=== PATIENT | female | born 1950 | race Caucasian/White ===

== ENCOUNTER 2017-09-12 20:05 | Emergency (ER) | payer OTHER ==
[~2017-09-12] VITALS: Ht 157.5 cm; Wt 64.0 kg
[~2017-09-12 20:05] MED LIST: ABAT250V; ACET325 PO; ALBU90OI INH; ALBU90OI61 INH; ALBUTEROL SULF INH; ALLO100 PO; ALPR.5 PO; ALUM320SU PO; AMOCLA500 PO; ASPI81CH PO; ASPI81EC PO; Amox Tr-K Clv1 EAC1 PO; Aranesp40 MCG/0.4 INJ; Augmentin 875-1 EACH PO; BISA10S PR; BUME2 PO; Bystolic2.5 MG PO; CEPH500 PO; CHOL10002 PO; CITRACAL + D E1 EACH; CITRACAL + D E1 EACH PO; CLARITIN10 MG PO; CLON1; CLON1 PO; CLON2 PO; CLOZAPINE; CODACE30 PO; CYAN500 PO; CYCL10 PO; Cleocin HCl300 MG PO; DOCU100 PO; DONE5 PO; DULERA 200 MCG/13 GM INH; ESCI10; ESCI20 PO; ESTRADIOL; Enulose10 GM/15 M PO; FERR325 PO; FLUO10 PO; FLUO20 PO; FLUSAL2505 IH; FLUSAL2505 INH; FURO40 PO; Flonase 0.05% N16 GM INH; GABA100 PO; HYDACE10B PO; HYDHCL25 PO; IBUP600 PO; Keflex250 MG PO; Keflex500 MG PO; LIDO5TP TOP; LOSA25 PO; LOVA40 PO; Lisinopril2.5 MG PO; MEGE40SU PO; METO25; METO25ER PO; MIDO5 PO; Micro-K10 MEQ PO; NAPR375 PO; NAPR500ERA; NEPHROCAPS QT1 EACH PO; OLAN5 PO; OMEP20ER PO; ONDA8 PO; OXYB5 PO; Omeprazole20 M1 PO; PANT40 PO; PRAM.125 PO; PRAM.5 PO; PRED10 PO; PREG150 PO; PRO AIR; ROPI1 PO; RXLORA1 PO; SERT50 PO; SODCITSO PO; SPIHYD PO; TEMA15 PO; TIOT18; TIOT18 IH; TIOT18 INH; TOCO400 PO; TRAZ50 PO; TRIHYD5075 PO; VENL75ER PO; VITNEPH PO
[2017-09-12] MEDS ORDERED: BENZ100A PO (20:53)
[2018-05-05] MEDS ORDERED: Hydrocodone-Ap1 EA23 PO (16:45)
[2018-05-05] MEDS ORDERED: Aspirin EC81 MG PO (17:08)
[2018-06-02] MEDS ORDERED: Keppra1000 MG PO (11:35)
[2018-06-02] MEDS ORDERED: PANT40 PO (11:36)
[2018-06-02] MEDS ORDERED: SERT50 PO (11:36)
[2018-06-02] MEDS ORDERED: ALPR.5 PO (11:36)
[2018-06-02] MEDS ORDERED: TIROSINT100 MCG PO (11:37)
[2018-06-02] MEDS ORDERED: Zanaflex2 M1 PO (11:38)
[2018-06-02] MEDS ORDERED: HYDR1TAB94 PO (11:39)
[2018-06-02] MEDS ORDERED: MEGESTROL400 MG/10 PO (11:41)
[2018-06-02] MEDS ORDERED: Calcium Acetat667 MG PO (11:42)
[2018-06-05] MEDS ORDERED: CEPH500 PO (13:50)
[2018-06-05] MEDS ORDERED: QUET25 PO (13:51)
[2018-06-12] MEDS ORDERED: MEGESTROL400 MG/10 PO (12:55)
[2018-07-07] MEDS ORDERED: ROPI1 PO (12:56)
[2018-07-07] MEDS ORDERED: CLON.5 PO (12:58)
[2018-07-07] MEDS ORDERED: GABA100 PO (13:00)
[2018-07-08] MEDS ORDERED: ACET325 PO (12:09)
[2018-07-08] MEDS ORDERED: ONDA4ODT MM (12:09)
== END 2017-09-12 21:03 | disposition home or self-care (01) ==
LOC: ER 20:05
DX: J11.1 Influenza due to unidentified influenza virus with other respiratory manifestations (principal); Z88.2 Allergy status to sulfonamides; Z88.1 Allergy status to other antibiotic agents; Z79.899 Other long term (current) drug therapy; Z79.82 Long term (current) use of aspirin; I10 Essential (primary) hypertension; F32.9 Major depressive disorder, single episode, unspecified; F17.200 Nicotine dependence, unspecified, uncomplicated
CPT/HCPCS: 99283

== ENCOUNTER 2017-10-26 04:39 | Emergency (ER) | payer OTHER ==
[~2017-10-26] VITALS: Ht 162.6 cm; Wt 68.0 kg
[~2017-10-26 04:39] MED LIST changes: +BENZ100A PO
[2017-10-26 05:00] LABS: Calcium, Ionized (POC) 1.29 mmol/L (1.10-1.46); Chloride (POC) 124 mmol/L (98-108); Creatinine (POC) 5.2 mg/dL (0.6-1.0); Glucose (ISTAT POC) 194 mg/dL (70-99); Hemoglobin (POC) 13.6 g/dL (12.0-16.0); Potassium (POC) 6.2 mmol/L (3.5-5.5); Sodium (POC) 148 mmol/L (135-148); Total CO2 (POC) 15 mmol/L (21-32)
[2017-10-26 05:02] LABS: BASOPHILS ABSOLUTE AUTO 0.21 K/mm3 (0.00-0.23); BASOPHILS PERCENT AUTO 1 % (0-2); EOSINOPHILS ABSOLUTE AUTO 0.85 K/mm3 (0.00-0.68); EOSINOPHILS PERCENT AUTO 5 % (0-6); Hematocrit 43.2 % (33.0-51.0); Hemoglobin 12.2 g/dL (11.5-16.0); IMMATURE GRAN ABSOLUTE AUTO 0.11 K/mm3 (0.00-0.10); IMMATURE GRAN PERCENT AUTO 1 % (0-1); LYMPHOCYTES ABSOLUTE AUTO 6.12 K/mm3 (0.84-5.20); LYMPHOCYTES PERCENT AUTO 37 % (21-46); MONOCYTES ABSOLUTE AUTO 1.06 K/mm3 (0.16-1.47); MONOCYTES PERCENT AUTO 6 % (4-13); Mean Corpuscular HGB 31.8 pg (26.0-34.0); Mean Corpuscular HGB Conc 28.2 g/dL (31.5-36.5); Mean Corpuscular Volume 113 fL (80-100); Mean Platelet Volume 9.1 fL (9.1-12.4); NEUTROPHILS ABSOLUTE AUTO 8.09 K/mm3 (1.96-9.15); NEUTROPHILS PERCENT AUTO 49 % (41-73); Platelet Count 329 K/mm3 (150-400); RDW Coefficient Variation 15.4 % (11.7-14.2); RDW Standard Deviation 64.3 fL (35.1-46.3); Red Blood Cell Count 3.84 M/mm3 (3.80-5.20); White Blood Cell Count 16.44 K/mm3 (4.00-11.30)
[2017-10-26 05:40] LABS: Albumin, Blood 3.1 g/dL (3.4-5.0); Albumin/Globulin Ratio 0.7 (0.8-1.8); Bilirubin, Total 0.4 mg/dL (0.1-1.0); Calcium, Blood 9.1 mg/dL (8.5-10.1); Creatinine, Blood 4.93 mg/dL (0.40-1.00); Globulin, Blood 4.2 g/dL (2.2-4.0); Total Protein, Blood 7.3 g/dL (6.4-8.2)
[2017-10-26 05:42] LABS: Potassium, Blood 6.3 mmol/L (3.5-5.5)
[2017-10-26] MEDS ORDERED: LOSA50 PO (06:51)
[2017-10-26] MEDS ORDERED: LEVE500 PO (06:52)
[2017-10-26] MEDS ORDERED: HYDHCL25 PO (06:53)
[2017-10-26] MEDS ORDERED: OXYC5 PO (06:54)
[2017-10-26 07:11] LABS: PO2 Arterial 89.8 mmHg (80-100)
[2017-10-26 07:12] LABS: pH Blood Arterial 7.16 (7.35-7.45)
[2017-10-26 07:35] LABS: Calcium, Ionized (POC) 1.46 mmol/L (1.10-1.46); Chloride (POC) 125 mmol/L (98-108); Creatinine (POC) 5.7 mg/dL (0.6-1.0); Glucose (ISTAT POC) 113 mg/dL (70-99); Hemoglobin (POC) 14.6 g/dL (12.0-16.0); Potassium (POC) 5.9 mmol/L (3.5-5.5); Sodium (POC) 150 mmol/L (135-148); Total CO2 (POC) 17 mmol/L (21-32)
[2018-05-05] MEDS ORDERED: Hydrocodone-Ap1 EA23 PO (16:45)
[2018-05-05] MEDS ORDERED: Aspirin EC81 MG PO (17:08)
[2018-06-02] MEDS ORDERED: Keppra1000 MG PO (11:35)
[2018-06-02] MEDS ORDERED: PANT40 PO (11:36)
[2018-06-02] MEDS ORDERED: ALPR.5 PO (11:36)
[2018-06-02] MEDS ORDERED: SERT50 PO (11:36)
[2018-06-02] MEDS ORDERED: TIROSINT100 MCG PO (11:37)
[2018-06-02] MEDS ORDERED: Zanaflex2 M1 PO (11:38)
[2018-06-02] MEDS ORDERED: HYDR1TAB94 PO (11:39)
[2018-06-02] MEDS ORDERED: MEGESTROL400 MG/10 PO (11:41)
[2018-06-02] MEDS ORDERED: Calcium Acetat667 MG PO (11:42)
[2018-06-05] MEDS ORDERED: CEPH500 PO (13:50)
[2018-06-05] MEDS ORDERED: QUET25 PO (13:51)
[2018-06-12] MEDS ORDERED: MEGESTROL400 MG/10 PO (12:55)
[2018-07-07] MEDS ORDERED: ROPI1 PO (12:56)
[2018-07-07] MEDS ORDERED: CLON.5 PO (12:58)
[2018-07-07] MEDS ORDERED: GABA100 PO (13:00)
[2018-07-08] MEDS ORDERED: ONDA4ODT MM (12:09)
[2018-07-08] MEDS ORDERED: ACET325 PO (12:09)
== END 2017-10-26 09:16 | disposition short-term general hospital (02) ==
LOC: ER 04:39
PROVIDERS: Emergency Medicine
DX: E87.5 Hyperkalemia (principal); E87.0 Hyperosmolality and hypernatremia; E87.2 Acidosis; I12.0 Hypertensive chronic kidney disease with stage 5 chronic kidney disease or end stage renal disease; E11.22 Type 2 diabetes mellitus with diabetic chronic kidney disease; N18.6 End stage renal disease; R94.31 Abnormal electrocardiogram [ECG] [EKG]; Z91.14 Patient's other noncompliance with medication regimen; F17.210 Nicotine dependence, cigarettes, uncomplicated; Z88.2 Allergy status to sulfonamides; Z88.1 Allergy status to other antibiotic agents; Z91.09 Other allergy status, other than to drugs and biological substances; Z79.899 Other long term (current) drug therapy; Z79.82 Long term (current) use of aspirin; Z99.2 Dependence on renal dialysis
CPT/HCPCS: 31500; 31720; 36415; 36600; 70450; 71045; 80047; 80053; 82803; 85014; 85025; 87040; 93005; 93010; 94002; 94640; 96365; 96366; 96367; 96368; 96375; 99291; 99292; J0330; J0692; J1815; J1953; J2060; J3370; J7030; J7050; J7070

== ENCOUNTER 2018-02-22 12:14 | Observation (INO) | payer OTHER ==
[~2018-02-22] VITALS: Ht 160 cm; Wt 56.6 kg
[~2018-02-22 12:14] MED LIST changes: +LEVE500 PO; +LOSA50 PO; +OXYC5 PO
[2018-02-22 12:50] LABS: BASOPHILS ABSOLUTE AUTO 0.06 K/mm3 (0.00-0.23); BASOPHILS PERCENT AUTO 1 % (0-2); EOSINOPHILS ABSOLUTE AUTO 0.31 K/mm3 (0.00-0.68); EOSINOPHILS PERCENT AUTO 3 % (0-6); Hematocrit 34.1 % (33.0-51.0); Hemoglobin 10.4 g/dL (11.5-16.0); IMMATURE GRAN ABSOLUTE AUTO 0.09 K/mm3 (0.00-0.10); IMMATURE GRAN PERCENT AUTO 1 % (0-1); LYMPHOCYTES ABSOLUTE AUTO 2.97 K/mm3 (0.84-5.20); LYMPHOCYTES PERCENT AUTO 24 % (21-46); MONOCYTES PERCENT AUTO 8 % (4-13); Mean Corpuscular HGB 28.5 pg (26.0-34.0); Mean Corpuscular HGB Conc 30.5 g/dL (31.5-36.5); Mean Corpuscular Volume 93 fL (80-100); Mean Platelet Volume 9.5 fL (9.1-12.4); NEUTROPHILS ABSOLUTE AUTO 7.76 K/mm3 (1.96-9.15); NEUTROPHILS PERCENT AUTO 64 % (41-73); Platelet Count 331 K/mm3 (150-400); RDW Coefficient Variation 16.2 % (11.7-14.2); RDW Standard Deviation 55.4 fL (35.1-46.3); Red Blood Cell Count 3.65 M/mm3 (3.80-5.20); White Blood Cell Count 12.19 K/mm3 (4.00-11.30)
[2018-02-22 13:04] LABS: International Normalized Ratio 0.95; Prothrombin Time Results 9.8 Sec (9.7-11.5)
[2018-02-22 13:08] LABS: Alanine Aminotransfer (ALT/SGP 16 U/L (12-78); Albumin, Blood 2.9 g/dL (3.4-5.0); Albumin/Globulin Ratio 0.9 (0.8-1.8); Alk Phos 111 U/L (50-136); Anion Gap 6 mmol/L (6-16); Aspartate Aminotrans (AST/SGOT 26 U/L (12-37); Bilirubin, Total 0.3 mg/dL (0.1-1.0); Blood Urea Nitrogen 37 mg/dL (8-24); Bun/Creatinine Ratio 9.2 (12.0-20.0); CO2, Blood 34 mmol/L (21-32); Calcium, Blood 8.2 mg/dL (8.5-10.1); Chloride, Blood 99 mmol/L (98-108); Creatinine, Blood 4.03 mg/dL (0.40-1.00); Ethanol (Alcohol), Blood, Med <3 mg/dL; Globulin, Blood 3.3 g/dL (2.2-4.0); Glomerular Filtration Rate 12 (60-); Glucose, Blood 60 mg/dL (70-99); Potassium, Blood 3.7 mmol/L (3.5-5.5); Sodium, Blood 139 mmol/L (136-145); Total Protein, Blood 6.2 g/dL (6.4-8.2); Troponin I <0.015 ng/mL (0.000-0.040)
[2018-02-22] MEDS ORDERED: SERT50 PO (14:31)
[2018-02-22] MEDS ORDERED: PANT40 PO (14:31)
[2018-02-22] MEDS ORDERED: Carbidopa-Levo1 EAC1 PO (14:32)
[2018-02-22] MEDS ORDERED: HYDHCL25 PO (14:39)
[2018-02-22] MEDS ORDERED: DONE5 PO (14:39)
[2018-02-22] MEDS ORDERED: ALLO100 PO (18:26)
[2018-02-22] MEDS ORDERED: LEVE500 PO ×2 (18:26→18:27)
[2018-02-23 05:27] LABS: BASOPHILS PERCENT AUTO 1 % (0-2); EOSINOPHILS ABSOLUTE AUTO 0.57 K/mm3 (0.00-0.68); EOSINOPHILS PERCENT AUTO 6 % (0-6); Hematocrit 30.8 % (33.0-51.0); Hemoglobin 9.6 g/dL (11.5-16.0); IMMATURE GRAN ABSOLUTE AUTO 0.04 K/mm3 (0.00-0.10); IMMATURE GRAN PERCENT AUTO 0 % (0-1); LYMPHOCYTES ABSOLUTE AUTO 3.09 K/mm3 (0.84-5.20); LYMPHOCYTES PERCENT AUTO 30 % (21-46); MONOCYTES ABSOLUTE AUTO 0.88 K/mm3 (0.16-1.47); MONOCYTES PERCENT AUTO 9 % (4-13); Mean Corpuscular HGB 29.3 pg (26.0-34.0); Mean Corpuscular HGB Conc 31.2 g/dL (31.5-36.5); Mean Corpuscular Volume 94 fL (80-100); Mean Platelet Volume 8.8 fL (9.1-12.4); NEUTROPHILS ABSOLUTE AUTO 5.55 K/mm3 (1.96-9.15); NEUTROPHILS PERCENT AUTO 54 % (41-73); Platelet Count 250 K/mm3 (150-400); RDW Coefficient Variation 16.1 % (11.7-14.2); RDW Standard Deviation 55.5 fL (35.1-46.3); Red Blood Cell Count 3.28 M/mm3 (3.80-5.20); White Blood Cell Count 10.23 K/mm3 (4.00-11.30)
[2018-02-23 06:00] LABS: Albumin, Blood 2.4 g/dL (3.4-5.0); Anion Gap 10 mmol/L (6-16); Blood Urea Nitrogen 41 mg/dL (8-24); Bun/Creatinine Ratio 9.4 (12.0-20.0); CO2, Blood 29 mmol/L (21-32); Calcium, Blood 7.9 mg/dL (8.5-10.1); Chloride, Blood 105 mmol/L (98-108); Creatinine, Blood 4.34 mg/dL (0.40-1.00); Glomerular Filtration Rate 11 (60-); Glucose, Blood 79 mg/dL (70-99); Magnesium, Blood 1.9 mg/dL (1.6-2.4); Phosphorus, Blood 3.9 mg/dL (2.5-4.9); Potassium, Blood 4.4 mmol/L (3.5-5.5); Sodium, Blood 144 mmol/L (136-145)
== END 2018-02-23 13:20 | disposition home or self-care (01) ==
LOC: ER 12:14 → MEDS 12:15 → ENPENDDIS 02-23 10:00 → MEDS 02-23 13:20
PROVIDERS: Emergency Medicine; Internal Medicine
DX: S06.5X0A Traumatic subdural hemorrhage without loss of consciousness, initial encounter (principal); I12.0 Hypertensive chronic kidney disease with stage 5 chronic kidney disease or end stage renal disease; E11.22 Type 2 diabetes mellitus with diabetic chronic kidney disease; N18.6 End stage renal disease; J44.9 Chronic obstructive pulmonary disease, unspecified; G20 Parkinson's disease; F32.9 Major depressive disorder, single episode, unspecified; D63.1 Anemia in chronic kidney disease; N25.81 Secondary hyperparathyroidism of renal origin; E86.9 Volume depletion, unspecified; F17.210 Nicotine dependence, cigarettes, uncomplicated; R42 Dizziness and giddiness; M19.90 Unspecified osteoarthritis, unspecified site; E88.09 Other disorders of plasma-protein metabolism, not elsewhere classified; F02.80 Dementia in other diseases classified elsewhere, unspecified severity, without behavioral disturbance, psychotic disturbance, mood disturbance, and anxiety; Z88.1 Allergy status to other antibiotic agents; Z88.2 Allergy status to sulfonamides; Z91.041 Radiographic dye allergy status; Z99.2 Dependence on renal dialysis; Z85.841 Personal history of malignant neoplasm of brain; Z79.82 Long term (current) use of aspirin; Z79.899 Other long term (current) drug therapy; W01.190A Fall on same level from slipping, tripping and stumbling with subsequent striking against furniture, initial encounter
CPT/HCPCS: 36415; 70450; 71045; 72125; 80048; 80053; 80069; 83735; 84484; 85025; 85610; G0480; J0881

== ENCOUNTER 2018-03-09 04:41 | Inpatient (IN) | payer OTHER ==
[~2018-03-09] VITALS: Ht 160 cm; Wt 56.3 kg
[~2018-03-09 04:41] MED LIST changes: +Carbidopa-Levo1 EAC1 PO
[2018-03-09 05:11] LABS: BASOPHILS ABSOLUTE AUTO 0.03 K/mm3 (0.00-0.23); BASOPHILS PERCENT AUTO 1 % (0-2); EOSINOPHILS ABSOLUTE AUTO 0.03 K/mm3 (0.00-0.68); EOSINOPHILS PERCENT AUTO 1 % (0-6); Hemoglobin 10.2 g/dL (11.5-16.0); IMMATURE GRAN ABSOLUTE AUTO 0.05 K/mm3 (0.00-0.10); IMMATURE GRAN PERCENT AUTO 1 % (0-1); LYMPHOCYTES ABSOLUTE AUTO 0.53 K/mm3 (0.84-5.20); LYMPHOCYTES PERCENT AUTO 8 % (21-46); MONOCYTES ABSOLUTE AUTO 0.17 K/mm3 (0.16-1.47); MONOCYTES PERCENT AUTO 3 % (4-13); Mean Corpuscular HGB 29.6 pg (26.0-34.0); Mean Corpuscular HGB Conc 30.9 g/dL (31.5-36.5); Mean Corpuscular Volume 96 fL (80-100); Mean Platelet Volume 9.1 fL (9.1-12.4); NEUTROPHILS ABSOLUTE AUTO 5.63 K/mm3 (1.96-9.15); NEUTROPHILS PERCENT AUTO 87 % (41-73); Platelet Count 275 K/mm3 (150-400); RDW Coefficient Variation 15.3 % (11.7-14.2); RDW Standard Deviation 54.1 fL (35.1-46.3); Red Blood Cell Count 3.45 M/mm3 (3.80-5.20); White Blood Cell Count 6.44 K/mm3 (4.00-11.30)
[2018-03-09 05:15] LABS: Source, Urine Catheter
[2018-03-09 05:17] LABS: Bilirubin, Urine Neg (Neg); Blood, Urine 4+ (Neg); Glucose Qualitative, Urine Neg (Neg); Ketones, Urine Neg (Neg); Leukocyte Esterase, Urine 3+ (Neg); Nitrite, Urine Neg (Neg); Protein, Urine 2+ (Neg); Urobilinogen, Urine NORM (Normal)
[2018-03-09 05:28] LABS: Appearance, Urine Hazy (Clear); Color, Urine Yellow (P-Yellow)
[2018-03-09 05:29] LABS: Bacteria Many /hpf; Red Blood Cells, Urine 0-2 /hpf (0-2); Squamous Epithelial Cells Few /hpf (Few); Transitional Epithelial Cells Few /hpf (0-Rare); U Amphetamine Screen Not Detected; U Barbituate Screen Not Detected; U Benzodiazapine Screen DETECTED; U Buprenorphine Screen Not Detected; U Cannabinoids Screen Not Detected; U Cocaine Screen Not Detected; U Methadone Screen Not Detected; U Methamphetamine Screen Not Detected; U Opiates Screen Not Detected; U Oxycodone Screen Not Detected; U Phencyclidine Screen Not Detected; U Propoxyphene Screen Not Detected; White Blood Cells, Urine TNTC /hpf (0-5)
[2018-03-09 05:30] LABS: Ethanol (Alcohol), Blood, Med <3 mg/dL
[2018-03-09 05:36] LABS: Alanine Aminotransfer (ALT/SGP <6 U/L (12-78); Albumin, Blood 2.7 g/dL (3.4-5.0); Albumin/Globulin Ratio 0.7 (0.8-1.8); Alk Phos 110 U/L (50-136); Anion Gap 9 mmol/L (6-16); Aspartate Aminotrans (AST/SGOT 15 U/L (12-37); Bilirubin, Total 0.3 mg/dL (0.1-1.0); Blood Urea Nitrogen 25 mg/dL (8-24); Bun/Creatinine Ratio 6.4 (12.0-20.0); CO2, Blood 25 mmol/L (21-32); Calcium, Blood 8.5 mg/dL (8.5-10.1); Chloride, Blood 102 mmol/L (98-108); Creatinine, Blood 3.91 mg/dL (0.40-1.00); Globulin, Blood 3.7 g/dL (2.2-4.0); Glomerular Filtration Rate 12 (60-); Glucose, Blood 108 mg/dL (70-99); Potassium, Blood 4.9 mmol/L (3.5-5.5); Sodium, Blood 136 mmol/L (136-145); Total Protein, Blood 6.4 g/dL (6.4-8.2)
[2018-03-09] MEDS ORDERED: ALPR.5 PO (15:27)
[2018-03-10 04:36] LABS: BASOPHILS ABSOLUTE AUTO 0.05 K/mm3 (0.00-0.23); BASOPHILS PERCENT AUTO 1 % (0-2); EOSINOPHILS ABSOLUTE AUTO 0.25 K/mm3 (0.00-0.68); EOSINOPHILS PERCENT AUTO 5 % (0-6); Hematocrit 32.4 % (33.0-51.0); Hemoglobin 9.8 g/dL (11.5-16.0); IMMATURE GRAN ABSOLUTE AUTO 0.01 K/mm3 (0.00-0.10); IMMATURE GRAN PERCENT AUTO 0 % (0-1); LYMPHOCYTES ABSOLUTE AUTO 1.29 K/mm3 (0.84-5.20); LYMPHOCYTES PERCENT AUTO 23 % (21-46); MONOCYTES ABSOLUTE AUTO 0.36 K/mm3 (0.16-1.47); MONOCYTES PERCENT AUTO 6 % (4-13); Mean Corpuscular HGB 28.7 pg (26.0-34.0); Mean Corpuscular HGB Conc 30.2 g/dL (31.5-36.5); Mean Corpuscular Volume 95 fL (80-100); Mean Platelet Volume 9.2 fL (9.1-12.4); NEUTROPHILS ABSOLUTE AUTO 3.64 K/mm3 (1.96-9.15); NEUTROPHILS PERCENT AUTO 65 % (41-73); Platelet Count 263 K/mm3 (150-400); RDW Coefficient Variation 15.2 % (11.7-14.2); RDW Standard Deviation 52.7 fL (35.1-46.3); Red Blood Cell Count 3.41 M/mm3 (3.80-5.20)
[2018-03-10 04:57] LABS: Albumin, Blood 2.5 g/dL (3.4-5.0); Anion Gap 6 mmol/L (6-16); Blood Urea Nitrogen 13 mg/dL (8-24); Bun/Creatinine Ratio 4.9 (12.0-20.0); CO2, Blood 34 mmol/L (21-32); Calcium, Blood 8.1 mg/dL (8.5-10.1); Chloride, Blood 99 mmol/L (98-108); Creatinine, Blood 2.68 mg/dL (0.40-1.00); Glomerular Filtration Rate 19 (60-); Glucose, Blood 71 mg/dL (70-99); Phosphorus, Blood 3.9 mg/dL (2.5-4.9); Potassium, Blood 3.4 mmol/L (3.5-5.5); Sodium, Blood 139 mmol/L (136-145)
[2018-03-11 05:49] LABS: BASOPHILS ABSOLUTE AUTO 0.05 K/mm3 (0.00-0.23); BASOPHILS PERCENT AUTO 1 % (0-2); EOSINOPHILS ABSOLUTE AUTO 0.38 K/mm3 (0.00-0.68); EOSINOPHILS PERCENT AUTO 6 % (0-6); Hematocrit 29.3 % (33.0-51.0); Hemoglobin 8.9 g/dL (11.5-16.0); IMMATURE GRAN ABSOLUTE AUTO 0.03 K/mm3 (0.00-0.10); IMMATURE GRAN PERCENT AUTO 1 % (0-1); LYMPHOCYTES ABSOLUTE AUTO 1.14 K/mm3 (0.84-5.20); LYMPHOCYTES PERCENT AUTO 17 % (21-46); MONOCYTES ABSOLUTE AUTO 0.44 K/mm3 (0.16-1.47); MONOCYTES PERCENT AUTO 7 % (4-13); Mean Corpuscular HGB 28.9 pg (26.0-34.0); Mean Corpuscular HGB Conc 30.4 g/dL (31.5-36.5); Mean Corpuscular Volume 95 fL (80-100); NEUTROPHILS ABSOLUTE AUTO 4.59 K/mm3 (1.96-9.15); NEUTROPHILS PERCENT AUTO 69 % (41-73); RDW Standard Deviation 52.3 fL (35.1-46.3); Red Blood Cell Count 3.08 M/mm3 (3.80-5.20); White Blood Cell Count 6.63 K/mm3 (4.00-11.30)
[2018-03-11 06:00] LABS: Albumin, Blood 2.1 g/dL (3.4-5.0); Anion Gap 9 mmol/L (6-16); Blood Urea Nitrogen 14 mg/dL (8-24); Bun/Creatinine Ratio 4.8 (12.0-20.0); CO2, Blood 28 mmol/L (21-32); Calcium, Blood 7.4 mg/dL (8.5-10.1); Chloride, Blood 102 mmol/L (98-108); Glomerular Filtration Rate 17 (60-); Glucose, Blood 73 mg/dL (70-99); Phosphorus, Blood 4.1 mg/dL (2.5-4.9); Sodium, Blood 139 mmol/L (136-145)
[2018-03-11 06:24] LABS: Mean Platelet Volume 10.1 fL (9.1-12.4); Platelet Count 210 K/mm3 (150-400)
[2018-03-12 05:51] LABS: Hemoglobin 11.6 g/dL (11.5-16.0)
[2018-03-12 06:13] LABS: Albumin, Blood 2.3 g/dL (3.4-5.0); Anion Gap 8 mmol/L (6-16); Blood Urea Nitrogen 11 mg/dL (8-24); Bun/Creatinine Ratio 5.2 (12.0-20.0); CO2, Blood 30 mmol/L (21-32); Calcium, Blood 8.1 mg/dL (8.5-10.1); Chloride, Blood 99 mmol/L (98-108); Creatinine, Blood 2.12 mg/dL (0.40-1.00); Glomerular Filtration Rate 25 (60-); Glucose, Blood 59 mg/dL (70-99); Magnesium, Blood 1.8 mg/dL (1.6-2.4); Phosphorus, Blood 2.7 mg/dL (2.5-4.9); Potassium, Blood 3.7 mmol/L (3.5-5.5); Sodium, Blood 137 mmol/L (136-145)
[2018-03-13 06:16] LABS: Hemoglobin 10.3 g/dL (11.5-16.0)
[2018-03-13 06:33] LABS: Anion Gap 8 mmol/L (6-16); Blood Urea Nitrogen 19 mg/dL (8-24); Bun/Creatinine Ratio 7.4 (12.0-20.0); CO2, Blood 29 mmol/L (21-32); Calcium, Blood 8.3 mg/dL (8.5-10.1); Chloride, Blood 98 mmol/L (98-108); Creatinine, Blood 2.58 mg/dL (0.40-1.00); Glomerular Filtration Rate 20 (60-); Glucose, Blood 69 mg/dL (70-99); Magnesium, Blood 1.9 mg/dL (1.6-2.4); Phosphorus, Blood 3.5 mg/dL (2.5-4.9); Potassium, Blood 3.9 mmol/L (3.5-5.5); Sodium, Blood 135 mmol/L (136-145)
[2018-03-13] MEDS ORDERED: ACET500 PO (11:49)
[2018-03-14 04:13] LABS: Hematocrit 32.8 % (33.0-51.0); Hemoglobin 10.4 g/dL (11.5-16.0)
[2018-03-14 04:32] LABS: Albumin, Blood 2.1 g/dL (3.4-5.0); Anion Gap 6 mmol/L (6-16); Blood Urea Nitrogen 14 mg/dL (8-24); Bun/Creatinine Ratio 7.1 (12.0-20.0); CO2, Blood 31 mmol/L (21-32); Chloride, Blood 100 mmol/L (98-108); Creatinine, Blood 1.96 mg/dL (0.40-1.00); Glomerular Filtration Rate 27 (60-); Glucose, Blood 57 mg/dL (70-99); Magnesium, Blood 1.8 mg/dL (1.6-2.4); Phosphorus, Blood 1.2 mg/dL (2.5-4.9); Potassium, Blood 3.6 mmol/L (3.5-5.5); Sodium, Blood 137 mmol/L (136-145)
== END 2018-03-14 17:36 | DRG 956 ==
LOC: ER 04:41 → SURS 04:42
PROVIDERS: Emergency Medicine; Internal Medicine Nephrology; Orthopaedic Surgery
PROC: 0QH734Z Insertion of Internal Fixation Device into Left Upper Femur, Percutaneous Approach (ICD-10-PCS; principal; 2018-03-10 08:30)
DX: S72.002A Fracture of unspecified part of neck of left femur, initial encounter for closed fracture (principal); S06.5X9A Traumatic subdural hemorrhage with loss of consciousness of unspecified duration, initial encounter; N18.6 End stage renal disease; G92 Toxic encephalopathy; I12.0 Hypertensive chronic kidney disease with stage 5 chronic kidney disease or end stage renal disease; N39.0 Urinary tract infection, site not specified; G40.509 Epileptic seizures related to external causes, not intractable, without status epilepticus; G20 Parkinson's disease; E11.22 Type 2 diabetes mellitus with diabetic chronic kidney disease; E88.09 Other disorders of plasma-protein metabolism, not elsewhere classified; E83.39 Other disorders of phosphorus metabolism; J44.9 Chronic obstructive pulmonary disease, unspecified; F02.80 Dementia in other diseases classified elsewhere, unspecified severity, without behavioral disturbance, psychotic disturbance, mood disturbance, and anxiety; W18.30XA Fall on same level, unspecified, initial encounter; D63.1 Anemia in chronic kidney disease; B96.1 Klebsiella pneumoniae [K. pneumoniae] as the cause of diseases classified elsewhere; E87.6 Hypokalemia; E86.9 Volume depletion, unspecified; Z90.49 Acquired absence of other specified parts of digestive tract; Z99.2 Dependence on renal dialysis; Z90.710 Acquired absence of both cervix and uterus; Z98.2 Presence of cerebrospinal fluid drainage device; Z98.42 Cataract extraction status, left eye; Z98.890 Other specified postprocedural states; Z88.1 Allergy status to other antibiotic agents; Z88.8 Allergy status to other drugs, medicaments and biological substances; Z88.2 Allergy status to sulfonamides; Z79.899 Other long term (current) drug therapy
CPT/HCPCS: 36415; 51701; 51702; 70450; 71046; 73502; 80053; 80069; 81001; 82947; 83605; 83735; 85014; 85018; 85025; 86850; 86900; 86901; 86923; 87040; 87077; 87086; 87186; 93005; 93010; 94762; 96374; 96375; 97110; 97116; 97162; 97166; 97530; 97535; 99285-25; C1713; C1769; G0480; G8978; G8979; G8987; G8988; J0330; J0696; J0881; J1650; J2370; J2405; J3010; J3480; J7030; J7060; P9016

== ENCOUNTER 2018-06-30 17:56 | Emergency (ER) | payer OTHER ==
[~2018-06-30] VITALS: Ht 160 cm; Wt 6.8 kg
[~2018-06-30 17:56] MED LIST changes: +ACET500 PO; +Aspirin EC81 MG PO; +Calcium Acetat667 MG PO; +HYDR1TAB94 PO; +Hydrocodone-Ap1 EA23 PO; +Keppra1000 MG PO; +MEGESTROL400 MG/10 PO; +QUET25 PO; +TIROSINT100 MCG PO; +Zanaflex2 M1 PO
[2018-06-30 18:33] LABS: BASOPHILS ABSOLUTE AUTO 0.09 K/mm3 (0.00-0.23); BASOPHILS PERCENT AUTO 1 % (0-2); EOSINOPHILS ABSOLUTE AUTO 0.43 K/mm3 (0.00-0.68); EOSINOPHILS PERCENT AUTO 6 % (0-6); Hematocrit 36.1 % (33.0-51.0); IMMATURE GRAN ABSOLUTE AUTO 0.01 K/mm3 (0.00-0.10); IMMATURE GRAN PERCENT AUTO 0 % (0-1); LYMPHOCYTES ABSOLUTE AUTO 2.22 K/mm3 (0.84-5.20); LYMPHOCYTES PERCENT AUTO 33 % (21-46); MONOCYTES ABSOLUTE AUTO 0.45 K/mm3 (0.16-1.47); MONOCYTES PERCENT AUTO 7 % (4-13); Mean Corpuscular HGB 30.1 pg (26.0-34.0); Mean Corpuscular HGB Conc 30.5 g/dL (31.5-36.5); Mean Corpuscular Volume 99 fL (80-100); Mean Platelet Volume 9.1 fL (9.1-12.4); NEUTROPHILS ABSOLUTE AUTO 3.54 K/mm3 (1.96-9.15); NEUTROPHILS PERCENT AUTO 53 % (41-73); Platelet Count 309 K/mm3 (150-400); RDW Standard Deviation 47.5 fL (35.1-46.3); Red Blood Cell Count 3.66 M/mm3 (3.80-5.20); White Blood Cell Count 6.74 K/mm3 (4.00-11.30)
[2018-06-30 18:46] LABS: Albumin, Blood 2.9 g/dL (3.4-5.0); Albumin/Globulin Ratio 0.7 (0.8-1.8); Bilirubin, Total 0.3 mg/dL (0.1-1.0); Bun/Creatinine Ratio 7.9 (12.0-20.0); Calcium, Blood 8.8 mg/dL (8.5-10.1); Creatinine, Blood 5.6 mg/dL (0.40-1.00); Potassium, Blood 3.6 mmol/L (3.5-5.5); Total Protein, Blood 6.9 g/dL (6.4-8.2)
== END 2018-06-30 22:10 | disposition home or self-care (01) ==
LOC: ER 17:56
PROVIDERS: Emergency Medicine
DX: I95.9 Hypotension, unspecified (principal); E86.0 Dehydration; F32.9 Major depressive disorder, single episode, unspecified; I10 Essential (primary) hypertension; Z88.2 Allergy status to sulfonamides; Z88.1 Allergy status to other antibiotic agents; Z91.09 Other allergy status, other than to drugs and biological substances; Z79.899 Other long term (current) drug therapy
CPT/HCPCS: 36415; 71045; 80053; 85025; 93005; 93010; 96360; 96361; 99285-25; J7030